=== PATIENT | male | born 1990 | race Two or more races ===

== ENCOUNTER 2019-11-18 10:39 | Emergency (ER) | payer SELFPAY ==
[~2019-11-18] VITALS: Ht 177.8 cm; Wt 95.5 kg
[2019-11-18 10:52] VITALS: Ht 177.8 cm; Wt 95.5 kg
[2019-11-18 11:40] LABS: BASOPHILS 0 % (0-2); EOSINOPHILS 0.4 % (0-7); HEMATOCRIT 45.8 % (42.0-54.0); HEMOGLOBIN 15.9 g/dL (13.5-17.5); IMMATURE GRANULOCYTES 0.2 % (0-5); LYMPHOCYTES 20.7 % (15-50); MCH 32.2 pg (26.0-34.0); MCHC 34.7 g/dL (31.0-37.0); MCV 92.7 fL (80.0-100.0); MEAN PLATELET VOLUME 9.5 fL (7.4-10.4); MONOCYTES 9.2 % (2-11); NEUTROPHILS 69.5 % (40-80); PLATELET COUNT 229 10x3/uL (130-400); RBC 4.94 10x6/uL (4.20-6.10); RDW 12.7 % (11.5-14.5); WBC 4.6 10x3/uL (4.8-10.8)
[2019-11-18 11:48] LABS: CALC OSMOLALITY 268 mosm/kg (275-300); CALCIUM 8.2 mg/dL (8.5-10.1); CARBON DIOXIDE 25.7 mmol/L (21.0-32.0); CHLORIDE - SERUM 101 mmol/L (98-107); GLUCOSE 136 mg/dL (74-106); POTASSIUM - SERUM 3.5 mmol/L (3.5-5.1); SODIUM 134 mmol/L (136-145); UREA NITROGEN 10 mg/dL (7-18); eGFR NON AFRICAN AMERICAN > 90 mL/min (90-120)
[2019-11-18 11:50] LABS: APTT 29.2 SECONDS (22.8-39.4); INR 0.96 (0.85-1.17); PROTIME 12.7 SECONDS (11.6-15.0)
[2019-11-18 12:08] LABS: ALKALINE PHOSPHATASE 108 U/L (30-120); ALT (SGPT) 48 U/L (10-68); BILIRUBIN - TOTAL 0.48 mg/dL (0.2-1.3); C-REACTIVE PROTEIN 0.4 mg/dL (0.0-0.9); CKMB 1.4 U/L (0.0-3.6); CREATINE KINASE 113 UL (21-232); FERRITIN 411 ng/mL (3-244); PRO BNP 11 pg/mL (0-125); TROPONIN-I < 0.017 ng/mL (0.000-0.060)
[2019-11-18] MEDS ORDERED: VENTOLIN HFA [SP8 GM INH (13:50)
[2019-11-18] MEDS ORDERED: DECADRON4 MG PO (13:50)
[2019-11-18 16:10] VITALS: BP 128/79
== END 2019-11-18 16:10 | disposition home or self-care (01) ==
LOC: D.ER 10:39
PROVIDERS: Family Medicine
DX: U07.1 COVID-19 (principal); R06.02 Shortness of breath; R05 Cough; R50.9 Fever, unspecified